=== PATIENT | female | born 1990 | race Caucasian/White ===

== ENCOUNTER 2024-01-19 00:47 | Emergency (ER) | payer BC ==
[2024-01-19] MEDS ORDERED: ONDANSETRON 4 MG/2 ML VIAL ONE (01:36)
[2024-01-19] MEDS ORDERED: NA CHLORIDE 0.9% 1,000 ML ONE ×2 (01:36→02:25)
[2024-01-19] MEDS ORDERED: FAMOTIDINE 20 MG/2 ML VIAL IV ONE (01:36)
[2024-01-19 02:19] LABS: Absolute Lymphocytes (CBC) 0.3 K/uL (0.7-4.9); Absolute Monocytes 0.6 K/uL (0.1-1.3); Absolute Neutrophil 11.3 K/uL (1.8-8.0); Basophils % 0.4 % (0-1.3); Eosinophils % 0.4 % (0-4.4); Hematocrit 48.3 % (36.0-45.0); Hemoglobin 16.8 g/dL (12.0-15.0); Lymphocytes % 2.2 % (15.3-44.8); MCH 29.1 pg (27.0-35.0); MCHC 34.7 g/dL (32.0-36.0); MCV 83.9 fL (80-100); MPV 11.5 fL (7.6-11.3); Platelets 192 thou/uL (152-406); RBC Red Blood Cell Count 5.76 M/uL (3.86-4.86); Red Cell Distribution Width 13.7 % (12.1-15.2)
[2024-01-19] MEDS ORDERED: METOCLOPRAMIDE 10 MG/2mL INJ ONE (02:24)
[2024-01-19] MEDS ORDERED: DICYCLOMINE HCL 20 MG/2 ML AMP IM ONE (02:24)
[2024-01-19 02:25] LABS: Albumin 4.4 g/dL (3.4-5.0); Albumin/Globulin Ratio 1.1 (1.1-1.8); Anion Gap 8.9 mEq/L (5.0-15.0); Bilirubin Total 1.1 mg/dL (0.2-1.0); Potassium 3.9 mEq/L (3.5-5.1); Protein, Total 8.4 g/dL (6.4-8.2)
[2024-01-19] MEDS ORDERED: DIPHENOX/ATROP SULF 1 TAB PO ONE (02:25)
[2024-01-19 02:55] LABS: Specific Gravity 1.024 (1.005-1.030)
[2024-01-19 02:57] LABS: Renal Epithelial <5 /HPF (None Seen); Specific Gravity 1.024 (1.005-1.030); Sqamous Epithelial <5 /HPF (None Seen); Urine Bacteria <20 /HPF (<20); Urine Bilirubin NEGATIVE (Negative); Urine Blood Trace (Negative); Urine Clarity Turbid (Clear); Urine Color Yellow (Yellow); Urine Culture Reflex Order NOT NEEDED; Urine Glucose NEGATIVE (Negative); Urine Ketones TRACE (Negative); Urine Microscopic Reflex YN ORDER UMIC; Urine Mucus Slight /HPF (None Seen); Urine Nitrite NEGATIVE (Negative); Urine Protein TRACE (Negative); Urine RBC None Seen /HPF (None Seen); Urine Urobilinogen Normal (Normal); Urine WBC <5 /HPF (<5)
--- NOTE | 2024-01-19 03:19 | EDPHYS ---
Physician Documentation [facility] – [place], [place] Name: Rosa Maria Joseph Age: 33 yrs Sex: Female : 1990 Arrival Date: 01/19/2024 Time: 00:47 Bed 17 Private MD: ED Physician Anuel Karimi HPI: 01/18 01:29 This 33 yrs old Female presents to ER via Ambulatory with complaints of sp4 Nausea/Vomiting/Diarrhea. 05:18 33-year-old female presents with acute onset nausea vomiting diarrhea associated sp4 abdominal cramps. 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 Patient developed nausea vomiting diarrhea at 5 PM today associated with multiple episodes of vomiting watery diarrhea, history of IBS, takes Kelsie Valtrex and is allergic to amoxicillin. Reports abdominal cramps. History of 2 prior bilateral tubal ligation 2009.. . Historical: - Allergies: 01:12 Amoxicillin; ha1 - PMHx: 01:12 None; ha1 - PSHx: 01:12 TUBAL LIGATION; ha1 - Immunization history:: Adult Immunizations up to date. - Infectious Disease History:: Denies. - Social history:: Smoking status: Patient denies any tobacco usage or history of. - Family history:: not pertinent. ROS: 05:19 Constitutional: Negative for fever, chills, and weight loss, positive nausea vomiting sp4 diarrhea, positive abdominal cramping 05:19 All other systems are negative, Exam: 05:19 Constitutional: This is a well developed, well nourished patient who is awake, alert, sp4 and in no acute distress. Head/Face: Normocephalic, atraumatic. Eyes: Pupils equal round and reactive to light, extra-ocular motions intact. Lids and lashes normal. Conjunctiva and sclera are not injected. Cornea within normal limits. Periorbital areas with no swelling, redness, or edema. ENT: Nares patent. No nasal discharge, no septal abnormalities noted. Tympanic membranes are normal and external auditory canals are clear. Oropharynx with no redness, swelling, or masses, exudates, or evidence of obstruction, uvula midline. Mucous membranes moist. Neck: Trachea midline, no thyromegaly or masses palpated, and no cervical lymphadenopathy. Supple, full range of motion without nuchal rigidity, or vertebral point tenderness. Chest/axilla: Normal chest wall appearance and motion. Nontender with no deformity. No lesions are appreciated. Cardiovascular: Regular rate and rhythm with a normal S1 and S2. No gallops, murmurs, or rubs. Normal PMI, no JVD. No pulse deficits. Respiratory: Lungs have equal breath sounds bilaterally, clear to auscultation and percussion. No rales, rhonchi or wheezes noted. No increased work of breathing, no retractions or nasal flaring. Abdomen/GI: Soft, with normal bowel sounds. No distension or tympany. No guarding or rebound. No evidence of tenderness throughout. Back: No spinal tenderness. No costovertebral tenderness. Skin: Warm, dry with normal turgor. Normal color with no rashes, no lesions, and no evidence of cellulitis. MS/ Extremity: Pulses equal, no cyanosis. Neurovascular intact. Full, normal range of motion. Neuro: Awake and alert, GCS 15, oriented to person, place, time, and situation. Cranial nerves II-XII grossly intact. Motor strength 5/5 in all extremities. Sensory grossly intact. Psych: Awake, alert, with orientation to person, place and time. Behavior, mood, and affect are within normal limits Vital Signs: 00:49 BP 117 / 80; Pulse 98; Resp 17 S; Temp 98(O); Pulse Ox 100% on R/A; Weight 88 kg; ha1 Height 5 ft. 7 in. ; 01:18 BP 125 / 79; Pulse 88; Resp 16; Pulse Ox 98% ; dd2 03:29 BP 130 / 79; Pulse 84; Resp 16; Temp 98.3; Pulse Ox 98% ; Pain 4/10; dd2 00:49 Body Mass Index 30.38 (88.00 kg, 170.18 cm) ha1 03:29 Pain Scale: Adult dd2 Yessi Coma Score: 01:18 Eye Response: spontaneous(4). Motor Response: obeys commands(6). Verbal Response: dd2 oriented(5). Total: 15. 05:19 Eye Response: spontaneous(4). Motor Response: obeys commands(6). Verbal Response: sp4 oriented(5). Total: 15. MDM: 01:29 Patient medically screened. sp4 05:20 Differential diagnosis: Nonspecific abd pain, gastritis, pancreatitis, viral sp4 gastroenteritis, gastroenteritis. Data reviewed: vital signs, nurses notes, lab test result(s). Consideration of Admission/Observation Escalation of care including admission/observation considered. ED course: Patient has improved after medications in ER, stable for discharge home. 01/18 01:29 Order name: CBC with Diff; Complete Time: 03:22 sp4 01/18 01:29 Order name: CMP; Complete Time: 03:12 sp4 01/18 01:29 Order name: Lipase; Complete Time: 03:12 sp4 01/18 01:29 Order name: Test, Urine; Complete Time: 03:12 sp4 01/18 01:29 Order name: Urinalysis w/ reflexes; Complete Time: 03:12 sp4 01/18 01:42 Order name: CRP; Complete Time: 03:12 sp4 01/18 02:23 Order name: Manual Differential; Complete Time: 03:22 EDMS 01/18 01:29 Order name: IV Saline Lock; Complete Time: :33 sp4 01/18 01:29 Order name: Labs collected and sent; Complete Time: :33 sp4 Administered Medications: 01:30 Drug: NS 0.9% IV 1000 ml IV at 1 bolus Per protocol; 1000 mL bolus Route: IV; Rate: 1 dd2 bolus; Site: left antecubital; 01:45 Follow up: Response: No adverse reaction dd2 02:30 Follow up: IV Status: Completed infusion; IV Intake: 1000ml dd2 01:30 Drug: Famotidine IVP 20 mg IVP once; dilute with 10 mL 0.9% NaCl; give over 2 minutes dd2 Route: IVP; Site: left antecubital; 01:45 Follow up: Response: No adverse reaction dd2 01:30 Drug: Ondansetron IVP 4 mg IVP once; over 2 minutes Route: IVP; Site: left antecubital; dd2 01:45 Follow up: Response: No adverse reaction dd2 02:31 Drug: NS 0.9% IV 1000 ml IV at 1 bolus Per protocol; 1000 mL bolus Route: IV; Rate: 1 dd2 bolus; Site: left antecubital; 02:46 Follow up: Response: No adverse reaction dd2 03:44 Follow up: Response: No adverse reaction; IV Status: Order to discontinue infusion; IV dd2 Intake: 250ml 02:31 Drug: Diphenoxylate-Atropine PO 2 tabs PO once Route: PO; dd2 02:46 Follow up: Response: No adverse reaction dd2 02:31 Drug: Dicyclomine IM 20 mg IM once Route: IM; Site: right deltoid; dd2 02:46 Follow up: Response: No adverse reaction dd2 02:32 Drug: metoCLOPramide IVP 10 mg IVP once; over 1 to 2 minutes Route: IVP; Site: left dd2 antecubital; 02:47 Follow up: Response: No adverse reaction dd2 Disposition: 05:21 Chart complete. sp4 Disposition Summary: 01/19/24 03:19 Discharge Ordered Notes: Location: Home sp4 Problem: new sp4 Symptoms: have improved sp4 Condition: Stable sp4 Diagnosis - Acute gastroenteritis, nausea vomiting diarrhea sp4 Followup: sp4 - With: Private Physician - When: 7 - 10 days - Reason: Recheck today's complaints Discharge Instructions: - Discharge Summary Sheet sp4 - Viral Gastroenteritis, Adult, [id number] sp4 - Clear Liquid Diet, Adult, [id number] sp4 Forms: - Patient Portal Instructions sp4 Prescriptions: - Ibuprofen 800 mg Oral Tablet - take 1 tablet ORAL route every 8 hours As needed take with food; 30 tablet; sp4 Refills: 0, Product Selection Permitted - Pepcid 20 mg Oral tablet - take 2 tablet ORAL route once daily for 10 days; 20 tablet; Refills: 0, Product sp4 Selection Permitted - Lomotil 2.5-0.025 mg Oral tablet - take 1 tablet ORAL route every 6 hours As needed PRN diarrhea; 30 tablet; sp4 Refills: 0, Product Selection Permitted - dicyclomine 20 mg Oral tablet - take 2 tablets ORAL route every 8 hours PRN stomach cramps; 30 tablet; Refills: sp4 0, Product Selection Permitted - ondansetron 8 mg Oral Tablet,disintegrating - take 1 tablet ORAL route every 8 hours PRN nausea; 30 tablet; Refills: 0, sp4 Product Selection Permitted Signatures: Dispatcher [employer] Geovanna Ruiz RN RN ha1 Anuel Karimi MD MD sp4 ADUIE ARIAS RN RN dd2 Corrections: (The following items were deleted from the chart) 01:30 01:30 CBC+H.LAB.BRZ ordered. EDMS EDMS 01:30 01:30 COMPREHENSIVE METABOLIC PANEL+C.LAB.BRZ ordered. EDMS EDMS 01:30 01:30 LIPASE+C.LAB.BRZ ordered. EDMS EDMS 01:30 01:30 Test, Urine+UC.LAB.BRZ ordered. EDMS EDMS 01:30 01:30 Urinalysis+U.LAB.BRZ ordered. EDMS EDMS 01:43 01:43 C-REACTIVE PROTEIN+C.LAB.BRZ ordered. EDMS EDMS
--- NOTE | 2024-01-19 03:19 | ER ---
Nurse's Notes [facility] Name: Rosa Maria Joseph Age: 33 yrs Sex: Female : 1990 Arrival Date: 01/19/2024 Time: 00:47 Bed 17 Private MD: Diagnosis: Acute gastroenteritis, nausea vomiting diarrhea Presentation: 01/18 00:49 Chief complaint: Patient states: NAUSEA, VOMITING, DIARRHEA, AND BODY CHILLS. ha1 00:49 Coronavirus screen: Vaccine status: Patient reports being unvaccinated. Ebola Screen: ha1 No symptoms or risks identified at this time. Initial Sepsis Screen: Does the patient meet any 2 criteria? No. Patient's initial sepsis screen is negative. Does the patient have a suspected source of infection? No. Patient's initial sepsis screen is negative. Risk Assessment: Do you want to hurt yourself or someone else? Patient reports no desire to harm self or others. Onset of symptoms was January 18, 2024. 00:49 Method Of Arrival: Ambulatory ha1 00:49 Acuity: JULISA 3 ha1 Triage Assessment: 00:49 General: Appears uncomfortable, Behavior is cooperative, anxious. Pain: Complains of ha1 pain in abdomen Pain does not radiate. Quality of pain is described as crampy. Neuro: Level of Consciousness is awake, alert, obeys commands, Oriented to person, place, time, situation. Cardiovascular: Patient's skin is warm and dry. Respiratory: Airway is patent Respiratory effort is even, unlabored, Respiratory pattern is regular, symmetrical. GI: Abdomen is round non-distended, obese, Reports lower abdominal pain, diarrhea, nausea, vomiting. Historical: - Allergies: 01:12 Amoxicillin; ha1 - PMHx: 01:12 None; ha1 - PSHx: 01:12 TUBAL LIGATION; ha1 - Immunization history:: Adult Immunizations up to date. - Infectious Disease History:: Denies. - Social history:: Smoking status: Patient denies any tobacco usage or history of. - Family history:: not pertinent. Screenin:13 [facility] ED Fall Risk Assessment (Adult) History of falling in the last 3 months, ha1 including since admission No falls in past 3 months (0 pts) Confusion or Disorientation No (0 pts) Intoxicated or Sedated No (0 pts) Impaired Gait No (0 pts) Mobility Assist Device Used No (0 pt) Altered Elimination No (0 pt) Score/Fall Risk Level 0 - 2 = Low Risk Oriented to surroundings, Maintained a safe environment, Educated pt \T\ family on fall prevention, incl call for assistance when getting out of bed, Hourly rounding (assess needs \T\ fall precautionary measures) done. Abuse screen: Denies threats or abuse. Denies injuries from another. Nutritional screening: No deficits noted. Tuberculosis screening: No symptoms or risk factors identified. Assessment: 01:18 General: Appears uncomfortable, Behavior is cooperative, appropriate for age, crying. dd2 Pain: Complains of pain in abdomen Pain currently is 7 out of 10 on a pain scale. Neuro: Level of Consciousness is awake, alert, obeys commands, Oriented to person, place, time, situation, Appropriate for age. Cardiovascular: Heart tones S1 S2 Patient's skin is warm and dry. Respiratory: Airway is patent Respiratory effort is even, unlabored, Respiratory pattern is regular, symmetrical. GI: Abdomen is non-distended, Bowel sounds present X 4 quads. Abd is soft and non tender X 4 quads. Reports lower abdominal pain, upper abdominal pain, diarrhea, intolerance of fluids, intolerance of food, nausea, vomiting. : No deficits noted. No signs and/or symptoms were reported regarding the genitourinary system. EENT: No deficits noted. No signs and/or symptoms were reported regarding the EENT system. Derm: No deficits noted. No signs and/or symptoms reported regarding the dermatologic system. Derm:. Musculoskeletal: No deficits noted. No signs and/or symptoms reported regarding the musculoskeletal system. Circulation, motion, and sensation intact. Range of motion: intact in all extremities. Vital Signs: 00:49 BP 117 / 80; Pulse 98; Resp 17 S; Temp 98(O); Pulse Ox 100% on R/A; Weight 88 kg; ha1 Height 5 ft. 7 in. ; 01:18 BP 125 / 79; Pulse 88; Resp 16; Pulse Ox 98% ; dd2 03:29 BP 130 / 79; Pulse 84; Resp 16; Temp 98.3; Pulse Ox 98% ; Pain 4/10; dd2 00:49 Body Mass Index 30.38 (88.00 kg, 170.18 cm) ha1 03:29 Pain Scale: Adult dd2 Yessi Coma Score: 01:18 Eye Response: spontaneous(4). Motor Response: obeys commands(6). Verbal Response: dd2 oriented(5). Total: 15. 05:19 Eye Response: spontaneous(4). Motor Response: obeys commands(6). Verbal Response: sp4 oriented(5). Total: 15. ED Course: 00:48 Patient arrived in ED. [id number] 01:09 AUDIE ARIAS, RN is Primary Nurse. dd2 01:12 Triage completed. ha1 01:18 Patient has correct armband on for positive identification. Bed in low position. Call dd2 light in reach. Side rails up X 1. Client placed on continuous cardiac and pulse oximetry monitoring. NIBP monitoring applied. Door closed. Noise minimized. Warm blanket given. Verbal reassurance given. 01:18 No provider procedures requiring assistance completed. Inserted saline lock: 22 gauge dd2 in left antecubital area, using aseptic technique. Blood collected. Flushed with 10 mL NS. 01:29 Anuel Karimi MD is Attending Physician. sp4 03:42 IV discontinued, intact, bleeding controlled, No redness/swelling at site. Pressure dd2 dressing applied. Administered Medications: 01:30 Drug: NS 0.9% IV 1000 ml IV at 1 bolus Per protocol; 1000 mL bolus Route: IV; Rate: 1 dd2 bolus; Site: left antecubital; 01:45 Follow up: Response: No adverse reaction dd2 02:30 Follow up: IV Status: Completed infusion; IV Intake: 1000ml dd2 01:30 Drug: Famotidine IVP 20 mg IVP once; dilute with 10 mL 0.9% NaCl; give over 2 minutes dd2 Route: IVP; Site: left antecubital; 01:45 Follow up: Response: No adverse reaction dd2 01:30 Drug: Ondansetron IVP 4 mg IVP once; over 2 minutes Route: IVP; Site: left antecubital; dd2 01:45 Follow up: Response: No adverse reaction dd2 02:31 Drug: NS 0.9% IV 1000 ml IV at 1 bolus Per protocol; 1000 mL bolus Route: IV; Rate: 1 dd2 bolus; Site: left antecubital; 02:46 Follow up: Response: No adverse reaction dd2 03:44 Follow up: Response: No adverse reaction; IV Status: Order to discontinue infusion; IV dd2 Intake: 250ml 02:31 Drug: Diphenoxylate-Atropine PO 2 tabs PO once Route: PO; dd2 02:46 Follow up: Response: No adverse reaction dd2 02:31 Drug: Dicyclomine IM 20 mg IM once Route: IM; Site: right deltoid; dd2 02:46 Follow up: Response: No adverse reaction dd2 02:32 Drug: metoCLOPramide IVP 10 mg IVP once; over 1 to 2 minutes Route: IVP; Site: left dd2 antecubital; 02:47 Follow up: Response: No adverse reaction dd2 Medication: 01:18 VIS not applicable for this client. dd2 Intake: 02:30 IV: 1000ml; Total: 1000ml. dd2 03:44 IV: 250ml; Total: 1250ml. dd2 Outcome: 03:19 Discharge ordered by . sp4 03:42 Discharged to home ambulatory, dd2 03:42 Condition: stable 03:42 Discharge instructions given to patient, Instructed on discharge instructions, follow up and referral plans. medication usage, Demonstrated understanding of instructions, follow-up care, medications, Prescriptions given X 4, 03:43 Patient left the ED. dd2 Signatures: Alexa [id number] Geovanna Stevens RN RN ha1 Anuel Karimi MD MD sp4 AUDIE ARIAS RN RN dd2
[2024-01-19 03:22] LABS: Band Neutrophils 24 % (0-1); Blood Morphology Comment NOT SEEN (NOT SEEN); Differential Total Cells Count 100; Eosinophils 1 % (0-3); Lymphocytes 3 % (15-42); Monocytes 1 % (0-10); Platelet Estimate ADEQ; Segmented Neutrophils 70 % (40-80)
[2024-01-19 03:58] VITALS: O2SAT 98
[2024-01-19 04:04] VITALS: BP 130/79; TEMP 98.3
== END 2024-01-19 03:43 | disposition home or self-care (01) ==
LOC: ER 00:47
DX: K52.9 Noninfective gastroenteritis and colitis, unspecified (principal)
CPT/HCPCS: 96361; 85025; 81001; 36415; 81025; 83690; 80053; 86140; 96375; 96372; 96374; 99284; J2765; J0500; J2405; J7030 ×2